=== PATIENT | male | born 1960 | race Caucasian/White ===

== ENCOUNTER 2023-05-16 13:34 | Outpatient (AMB) | payer OTHER, SELFPAY ==
--- NOTE | 2023-05-16 13:57 | MHC.OFFWIV ---
Intake Vital Signs 05/16/23 13:58 Height 6 ft 2 in Weight 175 lb BMI 22.5 BP 148/74 H Blood Pressure Location Lt brachial Position Sitting Pulse 72 Pulse Source Pulse Oximeter Pulse Oximetry (%) 96 Oxygen Delivery Method Room Air Intake Visit Reasons: [employer]/cut on face wont stop bleeding(lobby) Allergies No Known Allergies Allergy (Unverified 05/16/23 13:57) HPI HPI Comments History of Present Illness Details Patient is a 63-year-old male in today for a sick visit. He states that 6 hours prior to his appointment he accidentally cut off a pimple while shaving, and the wound has been oozing blood slowly since. The wound is not full thickness. Patient states that he is capped compression on the area, has tried using super glue, and has tried using various bandages to trying get the bleeding to stop, with little success. Patient denies being on blood thinners. Denies dizziness, denies headache, denies nausea, denies lightheadedness. Patient has small superficial cut superior to the patient's left upper lip. After 5 minutes of pressure, the small wound was still oozing blood. Patient has small cut on the left maxilla of his face. This is unlikely to be a necrotizing infection. Patient had Steri-Strips placed over the cut. The wound is observed for 20 minutes in office. After 20 minutes the patient's wound was no longer bleeding. Review of Systems Const All systems reviewed & are unremarkable except as noted in HPI and below Skin/Breast Reports as per HPI Physical Exam Vital Signs: Last Vital Signs Pulse 72 05/16/23 13:58 BP 148/74 H 05/16/23 13:58 Pulse Ox 96 05/16/23 13:58 Oxygen Delivery Method Room Air 05/16/23 13:58 BMI result Body Mass Index 22.5 Patient's vital signs are reviewed and stable. Const General: no acute distress Orientation/consciousness: patient oriented x3 Limitations: no limitations Skin Wounds: wounds noted left face drainage bloody ( Slightly oozing. ) and without odor Neuro General: patient oriented x3 Assessment & Plan Assessment & Plan (1) Cut of face: Code(s): S01.81XA - Laceration without foreign body of other part of head, initial encounter Plan: patient had Steri-Strips placed over the very small cut. Cut was superficial not appropriate for sutures. After 20 minutes in office the bleeding had subsided. Patient will be given some Steri-Strips to take all. Educated to follow up with his primary care physician. Coding Level of Care Code New Pt Level 3 (91590) Diagnoses Cut of face S01.81XA Time Spent (min) 15
[2023-05-16 13:58] VITALS: BP 148/74; PULSE 72; O2SAT 96; BMI 22.5
== END 2023-05-16 15:27 | disposition home or self-care (01) ==
PROVIDERS: PCP Internal Medicine; Visit Provider Nurse Practitioner Primary Care
DX: S01.81XA Laceration without foreign body of other part of head, initial encounter (principal)
CPT/HCPCS: 99203